=== PATIENT | male | born 1995 | race Caucasian/White ===

== ENCOUNTER 2016-11-16 04:18 | Emergency (ER) | payer OTHER ==
[~2016-11-16] VITALS: Ht 180.3 cm; Wt 74.8 kg
[2016-11-16 04:27] VITALS: BP 127/71
[2016-11-16] MEDS ORDERED: IBUP600T16 PO (04:27)
[2016-11-16] MEDS ORDERED: AZIT250T PO (04:27)
--- NOTE | 2016-11-16 04:27 | PHYS DOC ---
Adult General HPI HPI Patient is a 21-year-old male who presents to the ER today secondary to a sore throat 2 days. Patient just returned from college a couple days ago. Patient denies any groin or axillary lymphadenopathy. Patient complains of tactile fevers. Patient was given ibuprofen by his mother earlier today. Patient denies any other symptomatology at this time. Patient denies any other past medical history. No hypertension diabetes or asthma. Patient's physical exam is significant for bilateral pharyngeal erythema. Mild pharyngeal edema. No exudates were visualized. Patient has no trismus. Patient does have some submandibular lymphadenopathy. Patient has no inguinal lymphadenopathy. Patient has no axillary lymphadenopathy. Patient's spine is nontender nor palpable. Assessment and plan 21-year-old gentleman with likely strep pharyngitis. Patient was started on Zithromax. Patient will follow up with primary care physician as needed. Patient is nontoxic appearing and appears to be stable for discharge home and outpatient workup. Review of Systems Review of Systems Eyes: Denies change in visual acuity, redness, or eye pain [] Respiratory: Denies cough or shortness of breath [] GI: Denies abdominal pain, nausea, vomiting, bloody stools or diarrhea [] : Denies dysuria or hematuria [] All other review systems are negative except as documented in the history of present illness portion. Physical Exam Physical Exam Constitutional: Well developed, well nourished, no acute distress, non-toxic appearance. [] HENT: Normocephalic, atraumatic, bilateral external ears normal, see above. TMs clear. Eyes: PERRLA, EOMI, conjunctiva normal, no discharge. [] Neck: Normal range of motion, no tenderness, supple, no stridor. [] Cardiovascular:Heart rate regular rhythm, no murmur [] Lungs & Thorax: Bilateral breath sounds clear to auscultation [] Abdomen: Bowel sounds normal, soft, no tenderness, no masses, no pulsatile masses. [] Skin: Warm, dry, no erythema, no rash. [] Back: No tenderness, no CVA tenderness. [] Extremities: No tenderness, no cyanosis, no clubbing, ROM intact, no edema. [] Neurologic: Alert and oriented X 3, normal motor function, normal sensory function, no focal deficits noted. [] Psychologic: Affect normal, judgement normal, mood normal. [] EKG EKG [] Radiology/Procedures Radiology/Procedures [] Course & Med Decision Making Course & Med Decision Making Pertinent Labs and Imaging studies reviewed. (See chart for details) [] Dragon Disclaimer Dragon Disclaimer This chart was dictated in whole or in part using Voice Recognition software in a busy, high-work load, and often noisy Emergency Department environment. It may contain unintended and wholly unrecognized errors or omissions. Departure Departure: Impression: Primary Impression: Pharyngitis Disposition: HOME, SELF-CARE Condition: IMPROVED Patient Instructions: Strep Throat Scripts Azithromycin (ZITHROMAX) 250 Mg Tablet 1 PKG PO UD, #6 TAB Prov: RADHA INMAN MD 11/16/16 Ibuprofen (IBUPROFEN) 600 Mg Tablet 600 MG PO QID Y for PAIN, #20 Prov: RADHA INMAN MD 11/16/16 Problem Qualifiers Primary Impression: Pharyngitis Pharyngitis/tonsillitis etiology: streptococcus Qualified Codes: J02.0 - Streptococcal pharyngitis RADHA INMAN MD November 16, 2016 04:27
[2016-11-16] MEDS ORDERED: AZITHROMYCIN 250 MG TABLET. PO ONE (05:00)
== END 2016-11-16 04:31 | disposition home or self-care (01) ==
LOC: ER 04:18
DX: J02.9 Acute pharyngitis, unspecified (principal); R50.9 Fever, unspecified
CPT/HCPCS: 99283; J0456